=== PATIENT | male | born 2005 | race Caucasian/White ===

== ENCOUNTER 2025-06-07 18:22 | Emergency (ER) | payer SELFPAY ==
[2025-06-07 18:47] VITALS: BP 139/74
--- NOTE | 2025-06-07 19:47 | ED.MUSCINJ ---
HPI-Injury
General
Chief Complaint: Musculo-Skeletal Complaint
Source: patient
Exam Limitations: none
Time Seen by Provider: 06/07/25 19:41
Nursing documentation reviewed up to this point in time: agreed with
History of Present Illness-Injury
Is this injury a work related problem?: Yes
Is pt an associate of [facility]?: No
Initial Injury comments:
Patient states he fell on to his right knee at work today. Reports pain and burning to right ant. knee. Brought self to ED for eval
Past History
Past History
ED Past Medical History: None
Review of Systems
Review of Systems
Allergies reviewed?: Yes
All Other Systems: ROS reviewed and negative except as documented in HPI and ROS
Constitutional: Reports no symptoms
Musculoskeletal: Reports joint pain (pain to right ant knee)
Skin: Reports no symptoms
Neurological: Reports no symptoms
Psychiatric: Reports no symptoms
Musculoskeletal Injury Exam
Musculoskeletal Injury Exam
Right Anterior Knee:
Pain with Movement?: Moderate
Tender to palpation?: Moderate
Soft tissue swelling?: None
External deformity and angulation?: None
Joint effusion?: None
Contusion?: Moderate
Hematoma-local bleeding into tissue?: None
Strain- Sprain- Tear (Connective tissue injury)?: None
Crepitus with movement?: No
Joint instability?: No
Malalignment/deformity?: No
Range of motion: Limited
Distal skin color and temperature: normal-warm & good color
Capillary Refill: normal
Normal distal neurovascular exam?: Yes
Phy Exam
General Physical Exam
General Presentation: well appearing and no apparent distress
General age: appears stated age
General Skin: warm and dry
General Habitus: normal
General Mental: alert
Musculoskeletal Exam
Musculoskeletal Exam: neuro vasc intact
Skin Exam
Skin Exam: normal color, warm/dry and no rash
Psychiatric Exam
Psychiatric Exam: normal mood/affect
Injury Course
Orders/Labs/Results
Orders:
Orders
06/07/25 18:52
Knee, Right 4 or More Views [CR Knee- Right 4 Or More View*] Urgent
Comment:
Reason For Exam: went down on his right knee while at work
06/07/25 19:44
Knee Immobilizer Right-Treatme ONCE
*Radiology
Radiology exam reviewed: radiology read reviewed
*Pulse Oximetry
SaO2: 98
Oxygen Mode of Delivery: Room air
Patient hypoxic: no
*Critical Care Note
Total Time (30-74mins, 75-104mins- exclusive of procedures): Not Applicable
Update Note
Update Note:
Patient to ED wtih complaint of right ant knee pain after falling onto it at work. Xray reviewed, no evidence of fracture or effusion. No ligament laxity on exam. No swelling or bruising. Tenderness surrounding right patella. Will place in knee
immobilizer and discharge home. Will follow up with workman's comp provider in AM.
ED Attending Note
-
Portions of this chart may have been created with voice recognition software.� Occasional wrong word or��sound alike� substitutions may have occurred due to the inherent limitations of voice recognition software.
Discharge Plan
Departure
Patient Disposition: Home (Routine Discharge)
Date of Disposition: 06/07/25
Time of Disposition: 19:44
Patient with high blood pressure during this ER visit?: No
Condition: Good
Covid-19: Not Applicable
Discharge Problem:
Contusion of knee, Sprain of knee
Instructions: Knee Immobilizer (DC), Contusion (DC), Sprain (DC), Ibuprofen, Using Cold for Pain
Stand Alone Forms: Return to Work
Activity Restrictions/Additional Instructions:
Follow up with your workmans comp provider in the AM
Interventions
Interventions:
*Risk Screen - Suicide Last Done: 06/07/25 18:47
*Neglect/Abuse Screening Last Done: 06/07/25 18:47
*Nursing Disposition Last Done: 06/07/25 20:21
Discharge Date and Time
Discharge Date/Time: 06/07/25 20:21
Print Language: ROMANSH
--- NOTE | 2025-06-07 20:20 | EDRN ---
This pt seen and discharged by BONILLA Mcdowell NP applied knee immobilizer. This RN had no interaction with pt, removing chart from [facility] only per Reva Veliz NP
== END 2025-06-07 20:21 | disposition home or self-care (01) ==
LOC: EMR 18:22
PROVIDERS: EMERGENCY PHYSICIAN Emergency Medicine
DX: S80.00XA Contusion of unspecified knee, initial encounter (principal); S83.90XA Sprain of unspecified site of unspecified knee, initial encounter; W19.XXXA Unspecified fall, initial encounter; Y99.0 Civilian activity done for income or pay
CPT/HCPCS: 99283; 29505; 73564